=== PATIENT | female | born 1945 | race Caucasian/White ===

== ENCOUNTER → 2023-12-01 15:12 | Outpatient (REF) | payer OTHER, SELFPAY | LOC: PAVMRI 15:12 | PROVIDERS: ATTENDING PHYSICIAN Specialist; FAMILY PHYSICIAN Family Medicine | DX: G93.41 Metabolic encephalopathy (principal); R51.9 Headache, unspecified; G25.3 Myoclonus | CPT/HCPCS: 70551 ==

== ENCOUNTER → 2024-09-26 10:22 | Outpatient (REF) | payer OTHER, SELFPAY | LOC: WDC 10:22 | PROVIDERS: ATTENDING PHYSICIAN Obstetrics & Gynecology; FAMILY PHYSICIAN Family Medicine | DX: Z12.31 Encounter for screening mammogram for malignant neoplasm of breast (principal); M81.0 Age-related osteoporosis without current pathological fracture | CPT/HCPCS: 77063; 77067; 77080 ==